=== PATIENT | female | born 1990 | race Caucasian/White ===

== ENCOUNTER → 2017-02-13 | Outpatient (CLI) | payer OTHER ==
--- NOTE | 2017-02-13 18:41 | DI ---
US OB TRANSVAGINAL, US OB LESS THAN 14 WEEKS,02/13/2017 12:58 PM: Clinical History: Establish gestational age. Previous Exam: Images from a prior gestation from March 11, 2012 Findings: Multiple grayscale and color Doppler sonographic images are obtained through the pelvis demonstrating an extremely early gestation. The uterus in its entirety it measures 8.3 x 5.3 x 6.1 cm. There is a single gestational sac within the sac diameter corresponding with an estimated gestational age of 6 w eeks 6 days. There is no visible crown-rump length. The ovaries are normal bilaterally. Impression: Extremely early gestational age was estimated gestational age by gestational sac size measuring 6 wee ks and 6 days.
== END ==
LOC: US 12:44
PROVIDERS: ATTEND Family Medicine
DX: Z36 Encounter for antenatal screening of mother (principal)
CPT/HCPCS: 76801; 76817

== ENCOUNTER → 2017-02-18 | Outpatient (CLI) | payer OTHER ==
--- NOTE | 2017-02-18 14:30 | DI ---
OBSTETRICAL ULTRASOUND, 02/18/2017 1:19 PM: Clinical History: Verify viability of the fetus. Previous Exam: 02/13/2017. LMP: 11/27/2016. An intrauterine gestational sac is visualized along with the yolk sac. However, even though only 5 da ys have transpired since the previous exam, no parts or a pole are identified. There is a crescent of fluid along the inferior aspect of the chorion consistent with a subchorionic hemorrhage that is slightly larger than on the previous exam. The gestational sac measurement is 19 mm correspo nding to an EGA of 6 weeks 6 days and this is one day less than that recorded on the previous study. This would indicate there has been no interval growth of the gestational sac. The ovaries are not alfredo ged. Readin. There is an intrauterine gestational sac with a yolk sac that has not shown interval growth over the past 5 days. In addition, no pole or parts are identified. 2. There is a subchorionic hemorrhage that is larger than on the previous study and this is located toward the lower uterine segment.
== END ==
LOC: US 13:16
PROVIDERS: ATTEND Family Medicine
DX: O36.80X0 Pregnancy with inconclusive fetal viability, not applicable or unspecified (principal)
CPT/HCPCS: 76815; 76817

== ENCOUNTER → 2017-02-20 | Day surgery (SDC) | payer OTHER ==
[~2017-02-20] MED LIST: IBUPROFEN 800 MG TABLET PO PRN; KETOROLAC 30 MG/1 ML VIAL ONE; LIDOCAINE MPF 2% - 5 ML (20 MG/1 ML) ONE; LIDOCAINE W/ SODIUM BICARB 0.5 ML SYR ONE; Lactated Ringers 1,000 ML PRIMARY IV ONE; MIDAZOLAM 5 MG/1 ML ONE; Methylergonovine Tab 0.2 MG TAB PO SCH; NORMAL SALINE 10 ML SYRINGE FLUSH IVP PRN; ONDANSETRON 4 MG/2 ML VIAL ONE; SODIUM CL 0.9% FOR INH 3 ML NEB NEB ONE; Sodium Chloride 0.9% 1,000 ML PRIMARY IV SCH; fentaNYL Inj 250 MCG/5 ML VIAL ONE
[2017-02-20 10:35] LABS: BILIRUBIN,URINE NEGATIVE (NEG); COLOR,URINE YELLOW; GLUCOSE, URINE (UA) NEGATIVE (NEG); NITRATE,URINE NEGATIVE (NEG); OCCULT BLOOD,URINE Trace-intact (NEG); PROTEIN,URINE NEGATIVE (NEG); UROBILINOGEN,URINE 0.2 mg/dL (0.2)
[2017-02-20 10:49] LABS: CLARITY,URINE CLEAR (CLEAR)
[2017-02-20 10:50] LABS: RBC,URINE 0-1 /hpf; SQUAMOUS EPITHELIAL CELL,UR FEW; URINE SAMPLE TYPE CLEAN CATCH URINE
[2017-02-20 11:10] VITALS: RESP 18
--- NOTE | 2017-02-20 11:33 | OB.OP.NOTE ---
Operative Report Surgeon: Estevan Anesthesia Type: General Anesthesia Provider: Deven Clark CRNA Surgery Date: 02/20/17 Preoperative Diagnosis: Missed AB Postoperative Diagnosis: Same Procedure: Suction D&C Estimated Blood Loss (mL): 1,500 Fluids: 1000 mL Complications: None Findings at Surgery: Anteverted uterus sounded to 10 cm. Products of conception returned at curettage. Indications for the Procedure: Missed AB Description of Procedure: The patient was taken to the operating room and placed supine where general laryngeal mask anesthesia was administered. She was then placed [facility] Examination under anesthesia was unremarkable. She was prepped and draped in the normal sterile fashion. A weighted speculum was placed in the vagina. Anterior lip of the cervix was grasped with a sickle tooth tenaculum. Uterus was sounded to a depth of 10 cm. The cervix was then dilated with Collins dilators to #30. A 9 mm curved suction curet was introduced to the uterine fundus and attached to vacuum tubing. Several passages of suction curettage were then made with return of products of conception and blood. When no further proximal were returned sharp curettage was performed with good cry noted in all 4 quadrants. A final passage of suction curettage returned no further products of conception or significant blood. The tenaculum was then removed from the cervix and hemostasis was achieved with direct pressure with a sponge stick. There was no bleeding from the endometrial cavity. There were no complications at surgery and the patient left to recovery in good condition. Plan: Routine postop care and discharge to home.
[2017-02-20 13:45] VITALS: TEMP 98.8
== END | disposition home or self-care (01) ==
LOC: SDSC 10:20
PROVIDERS: ATTEND Obstetrics & Gynecology
DX: O02.1 Missed abortion (principal)
CPT/HCPCS: 59820; 81001; J1885; J2704; J3010; J2001; J2250; J2405; J7120

== ENCOUNTER → 2017-03-26 | Outpatient (CLI) | payer OTHER ==
[2017-03-26 08:49] LABS: BASOPHILS # (AUTO) 0.03 10*3/UL; BASOPHILS % (AUTO) 0.6 % (0-1); EOSINOPHILS # (AUTO) 0.06 10*3/UL; EOSINOPHILS % (AUTO) 1.2 % (0-8); HEMATOCRIT 44.8 % (37.0-47.0); HEMOGLOBIN 15.1 g/dL (12.0-16.0); LYMPHOCYTES # (AUTO) 2.01 10*3/uL; MEAN CORPUSCULAR HEMOGLOBIN 30.9 PG (27-31); MEAN CORPUSCULAR HGB CONC 33.7 g/dL (33-37); MEAN CORPUSCULAR VOLUME 91.8 FL (81-99); MEAN PLATELET VOLUME 10.1 FL (7.4-12.2); MONOCYTES # (AUTO) 0.31 10*3/UL (0.3-0.8); MONOCYTES % (AUTO) 6.4 % (5-15); NEUTROPHILS # (AUTO) 2.41 10*3/UL; PLATELET MORPHOLOGY COMMENT NORMAL MORPHOLOGY (NORM); RBC MORPHOLOGY COMMENT NORMAL MORPHOLOGY (NORM); RED BLOOD COUNT 4.88 10^6/uL (4.20-5.40); WBC MORPHOLOGY COMMENT NORMAL MORPHOLOGY (NORM)
[2017-03-26 09:32] LABS: BLOOD UREA NITROGEN 10 mg/dL (7-22); BUN/CREATININE RATIO 16.66 (6-20); C-REACTIVE PROTEIN 0.5 mg/dL (0.0-0.9); CALCIUM 7.7 mg/dL (8.7-10.7); CHOL/HDL RATIO 3.95 RATIO (0-4.0); EST GLOMERULAR FILTRATION > 60 (>60 ml/min/1.73m(2)); HDL CHOLESTEROL 45 mg/dL (40-150); HEMOGLOBIN A1C 5.41 % (4.2-6.0); SERUM ALBUMIN 4.2 g/dL (3.5-4.8); SERUM CHOLESTEROL 178 mg/dL (120-200)
[2017-03-26 10:04] LABS: FERRITIN 15.5 ng/mL (12.00-336.70)
[2017-03-27 15:01] LABS: INSULIN, RANDOM 9.3 mcIU/mL (2.6 - 24.9)
[2017-03-28 06:57] LABS: COPPER 0.94 mcg/mL (0.75-1.45); ZINC 0.65 mcg/mL (0.66-1.10)
== END ==
LOC: LAB 08:06
DX: F33.1 Major depressive disorder, recurrent, moderate (principal); F41.9 Anxiety disorder, unspecified; Z79.899 Other long term (current) drug therapy
CPT/HCPCS: 36415; 80053; 80061; 82306; 82525; 82607; 82728; 83018; 83036; 83090; 83525; 84443; 84630; 85025; 86001; 86003; 86140

== ENCOUNTER → 2017-05-13 | Outpatient (CLI) | payer OTHER ==
[2017-05-13 15:45] LABS: BASOPHILS # (AUTO) 0.01 10*3/UL; BASOPHILS % (AUTO) 0.1 % (0-1); EOSINOPHILS # (AUTO) 0.05 10*3/UL; EOSINOPHILS % (AUTO) 0.7 % (0-8); HEMATOCRIT 44.5 % (37.0-47.0); LYMPHOCYTES # (AUTO) 2.17 10*3/uL; MEAN CORPUSCULAR HEMOGLOBIN 30.9 PG (27-31); MEAN CORPUSCULAR HGB CONC 33.7 g/dL (33-37); MEAN CORPUSCULAR VOLUME 91.8 FL (81-99); MEAN PLATELET VOLUME 10.2 FL (7.4-12.2); MONOCYTES # (AUTO) 0.49 10*3/UL (0.3-0.8); MONOCYTES % (AUTO) 6.8 % (5-15); NEUTROPHILS # (AUTO) 4.46 10*3/UL; NEUTROPHILS % (AUTO) 62.1 % (50-80); RED BLOOD COUNT 4.85 10^6/uL (4.20-5.40)
[2017-05-13 16:02] LABS: PLATELET MORPHOLOGY COMMENT NORMAL MORPHOLOGY (NORM); RBC MORPHOLOGY COMMENT NORMAL MORPHOLOGY (NORM); WBC MORPHOLOGY COMMENT NORMAL MORPHOLOGY (NORM)
[2017-05-13 16:10] LABS: HIV ANTIBODY NEGATIVE (N); HIV-1 P24 ANTIGEN NEGATIVE (N)
== END ==
LOC: MOB LAB 13:52
PROVIDERS: ATTEND Family Medicine
DX: Z36 Encounter for antenatal screening of mother (principal)
CPT/HCPCS: 36415; 80081; 86900; 86901; 87088

== ENCOUNTER → 2017-05-17 | Outpatient (CLI) | payer OTHER ==
--- NOTE | 2017-05-17 23:11 | DI ---
US OB LESS THAN 14 WEEKS,05/17/2017 2:04 PM: Clinical History: Established gestational age. Previous Exam: February 18, 2017 Findings: Multiple grayscale and color Doppler sonographic images are obtained through the pelvis demonstrating a single gestational sac. There is a single pole with a crown-rump length of 4 mm corresponding with an estimated gestati onal age of 6 weeks 4 days. Detected Doppler heart tones measure 116 beats per minute. Right ovary measures 3.6 x 2.8 x 2.3 cm with a normal sonographic appearance. The left ovary measures 4.1 x 2.7 x 3.1 cm also with a normal sonographic appearance. There is no evidence of free fluid. Impression: Single live intrauterine gestation with estimated gestational age of 6 weeks 4 days.
== END ==
LOC: US 14:00
PROVIDERS: ATTEND Family Medicine
DX: Z36 Encounter for antenatal screening of mother (principal)
CPT/HCPCS: 76801

== ENCOUNTER → 2017-06-25 | Outpatient (CLI) | payer BC, OTHER ==
--- NOTE | 2017-06-25 18:09 | DI ---
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 Previous Exam: None at this facility. Findings: Multiple transabdominal grayscale and color Doppler sonographic images are obtained through the pelvi s demonstrating a single intrauterine gestation with a crown-rump length of 22 mm corresponding with an estimated gestational age of 9 weeks zero days. There are no detectable Doppler heart tones. Impression: Single intrauterine gestation. Size does not equal dates, and there are no detectable Doppler heart t ones. This is most consistent with spontaneous .
== END ==
LOC: US 17:35
PROVIDERS: ATTEND Family Medicine
DX: O26.21 Pregnancy care for patient with recurrent pregnancy loss, first trimester (principal); Z3A.12 12 weeks gestation of pregnancy
CPT/HCPCS: 76815

== ENCOUNTER 2017-06-27 06:16 | Day surgery (SDC) | payer BC ==
[~2017-06-27 06:16] MED LIST changes: -IBUPROFEN 800 MG TABLET PO PRN; -KETOROLAC 30 MG/1 ML VIAL ONE; -LIDOCAINE MPF 2% - 5 ML (20 MG/1 ML) ONE; -MIDAZOLAM 5 MG/1 ML ONE; -Methylergonovine Tab 0.2 MG TAB PO SCH; -NORMAL SALINE 10 ML SYRINGE FLUSH IVP PRN; -ONDANSETRON 4 MG/2 ML VIAL ONE; -SODIUM CL 0.9% FOR INH 3 ML NEB NEB ONE; -Sodium Chloride 0.9% 1,000 ML PRIMARY IV SCH; +ceFAZolin Inj 2gm (Premix) 50 ML IV ONE; -fentaNYL Inj 250 MCG/5 ML VIAL ONE
[2017-06-27] MEDS ORDERED: fentaNYL Inj 250 MCG/5 ML VIAL ONE (06:55)
[2017-06-27] MEDS ORDERED: MIDAZOLAM 5 MG/1 ML ONE (06:55)
[2017-06-27] MEDS ORDERED: LIDOCAINE MPF 2% - 5 ML (20 MG/1 ML) ONE (06:59)
--- NOTE | 2017-06-27 07:02 | OB.OP.NOTE ---
Operative Report Surgeon: Russell Anesthesia Type: General (With LMA) Anesthesia Provider: River Torres CRNA Surgery Date: 06/27/17 Preoperative Diagnosis: demise at 9 weeks gestation by ultrasound. The patient desires definitive management with suction D&C Postoperative Diagnosis: Same Procedure: Exam under anesthesia. Dilation of cervix. Suction curette of endometrial lining Estimated Blood Loss (mL): 100 Fluids: 1000 mL LR Complications: None apparent No evidence of uterine perforation with procedure Findings at Surgery: Tissue was obtained with suction curet Indications for the Procedure: The patient is a 27-year-old 011 who was noted to have a demise on ultrasound 2 days ago. Patient had an ultrasound at the end of April 2017 showing intrauterine at 6-1/2 weeks gestation with cardiac activity. The patient had a routine OB appointment 2 days ago and Doptone's were not able to be auscultated. Formal ultrasound showed a 9 week intrauterine with no cardiac activity. A demise was documented. I met the patient yesterday on a [facility] consult and the patient desired definitive management with a suction D&C. The patient was administered Cytotec 200 g last evening for cervical ripening. The patient passed some blood and possibly tissue but is still bleeding this morning. The patient will be brought to the operating room for a suction D&C for a demise and now incomplete . Description of Procedure: The patient was brought to the operating room after the risk, benefits, alternatives and indications were discussed with the patient by her primary physician-Dr. Barclay-and then myself. Consent forms were signed for a suction D& C since the patient wanted definitive management with a D&C. The patient's blood type was noted to be Rh+. The patient was brought to the operating room and placed in the dorsal supine position. Patient underwent general anesthesia with LMA. Patient was placed in the [facility] in the dorsal lithotomy position. SCDs had been placed previously. An exam under anesthesia was completed. This showed The patient was prepped and draped sterilely. A weighted speculum was placed in the patient's posterior vagina and a Quigley retractor was placed anteriorly. The patient's cervix was visualized and a single-tooth tenaculum was placed on the anterior lip of the patient's cervix. The cervix and uterus was then sounded with the uterine sound. It was noted to be 10 cm. A #9 curved curette was selected. I then dilated the patient's cervix up to a #30 Hanks dilator. Suction curette was connected to the suction machine and with suction the machine went to 41-42. This was in the normal range. The suction curet was then used to suction the endometrial products of conception. Tissue was obtained. Several passes with the #9 suction curette was obtained. Then a gentle sharp curet was used. There was still some tissue between 3 and 6:00. The suction curette was used again and essentially only blood was obtained. The sharp curette was used and there was a good crigh in all 4 quadrants. The suction curette was used one more time. There appeared to be good hemostasis. Methergine 0.2 mg IM was administered. The tenaculum was removed. There was some bleeding from the tenaculum sites. However, there appeared to be a little more than usual and I was not sure if the bleeding was coming from the uterus. I used the #9 suction curet 1 more time and minimal blood was obtained from the uterine cavity. It was at that time that the bleeding was noted to be coming from the small tenaculum sites from the external OS. 4-0 Vicryl suture [id number] stitch was applied to the right and left tenaculum site. There was still some bleeding from the left side of the tenaculum site and one more [id number] suture was obtained. There was then excellent hemostasis. There was also excellent hemostasis from the uterus. No bleeding at the cervical OS or minimal bleeding from the cervical OS. A bimanual exam was performed. The uterus was 8-10 weeks size. Minimal bleeding. The procedure was concluded. The patient was awakened from her general anesthesia with LMA. The patient was brought to the PACU in stable condition. There was no evidence of uterine perforation at any time during the procedure including the uterine sounding or the suction curet or the sharp curette. Again , the sharp curette was completed but is gentle to obtain the crigh in all 4 quadrants. Plan: The patient would recover in the PACU and then be discharged home when doing well. The patient will have a follow-up with me in 1 week and then follow-up with her primary physician-Dr. Barclay-in about 4 or 5 weeks. A workup for 2 miscarriages with her current will be started when the patient sees Dr. Barclay.
[2017-06-27] MEDS ORDERED: METHYLERGONOVINE MALEATE 0.2 MG/1 ML VIAL IM ONE (07:35)
[2017-06-27] MEDS ORDERED: KETOROLAC 30 MG/1 ML VIAL ONE (07:38)
[2017-06-27] MEDS ORDERED: NORMAL SALINE 10 ML SYRINGE FLUSH IVP PRN (08:08)
[2017-06-27] MEDS ORDERED: KETOROLAC 15 MG/1 ML VIAL IVP PRN (08:08)
[2017-06-27] MEDS ORDERED: Lactated Ringers 1,000 ML PRIMARY IV SCH (08:15)
[2017-06-27 09:41] VITALS: RESP 19; TEMP 97.7
== END 2017-06-27 09:14 | disposition home or self-care (01) ==
LOC: SDSC 06:16
PROVIDERS: ATTEND Obstetrics & Gynecology
DX: O03.4 Incomplete spontaneous abortion without complication (principal)
CPT/HCPCS: 59812; J0690; J1885; J2001; J2210; J2250; J2704; J3010; J7120